=== PATIENT | female | born 1990 | race Two or more races ===

== ENCOUNTER 2018-09-25 12:02 | Emergency (ER) | payer OTHER, MEDICAID ==
[2018-09-25 12:08] VITALS: BP 117/76
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
== END 2018-09-25 12:21 | disposition home or self-care (01) ==
DX: O71.89 Other specified obstetric trauma (principal); Z3A.01 Less than 8 weeks gestation of pregnancy; V49.49XA Driver injured in collision with other motor vehicles in traffic accident, initial encounter; Y92.410 Unspecified street and highway as the place of occurrence of the external cause